=== PATIENT | female | born 1965 | race Caucasian/White ===

== ENCOUNTER 2022-01-26 07:46 | Day surgery (SDC) | payer MEDICAID, SELFPAY ==
[~2022-01-26] VITALS: Ht 157.5 cm; Wt 54.4 kg
[2022-01-26] MEDS ORDERED: fentaNYL CITRATE/PF 100 MCG/2 ML AMP ONE (09:16)
[2022-01-26] MEDS ORDERED: MIDAZOLAM HCL 5 MG/5 ML VIAL ONE (09:16)
[2022-01-26 12:46] VITALS: BP_SYST 98
== END 2022-01-26 11:35 | disposition home or self-care (01) ==
LOC: SDS 07:46 → SMU 07:49 → EDSEX 10:00 → SDS 11:35
PROVIDERS: ATTEND Internal Medicine
DX: R19.4 Change in bowel habit (principal); K64.8 Other hemorrhoids; Z20.822 Contact with and (suspected) exposure to COVID-19; Z88.6 Allergy status to analgesic agent; Z85.3 Personal history of malignant neoplasm of breast; Z79.899 Other long term (current) drug therapy
CPT/HCPCS: 36415; 45380; 45385; 87426; 88305; 96365; 99152; G0378; J2250; J3010